=== PATIENT | female | born 1990 | race American Indian/Alaskan Native ===

== ENCOUNTER 2018-09-07 12:35 | Emergency (ER) | payer SELFPAY ==
[2018-09-07 12:47] VITALS: BP 101/64
[2018-09-07 14:57] LABS: HCG Qualitative,Urine Negative (Negative)
[2018-09-07 15:01] LABS: Bacteria,Urine 3+ /HPF (Negative); Bilirubin,Urine NEG (Negative); Blood,Urine SM (Negative); Color,Urine Yellow (Yellow)
[2018-09-07 15:05] LABS: WBC,Urine > 182.0 /HPF (0.0-6.0)
[2018-09-07] MEDS ORDERED: ROCEPHIN IM ONE (15:10)
[2018-09-07] MEDS ORDERED: XYLOCAINE 1% MPF 5 mL INFILTRATI ONE (15:10)
[2018-09-07] MEDS ORDERED: MOTRIN PO ONE (15:11)
--- NOTE | 2018-09-07 15:13 | Emergency Department Report ---
ED Dysuria HPI - HPI Chief Complaint: Back Pain/Injury Stated Complaint: LOWER BACK PAIN Time Seen by Provider: 09/07/18 13:58 Duration: 3 Days Location of Discomfort: Suprapubic Severity: Moderate Symptoms: Dysuria: Yes, Frequency: No, Suprapubic Pain: No, Flank Pain: Yes, Fever: No, Hematuria: No, Abdominal Pain: No, Previous UTI's: Yes ED Review of Systems ROS: Stated complaint: LOWER BACK PAIN Other details as noted in HPI Comment: All other systems reviewed and negative Constitutional: no symptoms reported. denies: chills, fever Eyes: denies: eye pain ENT: denies: ear pain Respiratory: denies: cough Cardiovascular: denies: chest pain Endocrine: denies: flushing Gastrointestinal: denies: abdominal pain, nausea, vomiting, diarrhea, constipation, hematemesis, melena Genitourinary: denies: urgency, dysuria, frequency, hematuria, discharge Musculoskeletal: back pain Skin: denies: rash, lesions Neurological: denies: headache, weakness Psychiatric: denies: anxiety, depression Hematological/Lymphatic: denies: easy bleeding ED Past Medical Hx - Past Medical History Previous Medical History?: No - Surgical History Past Surgical History?: No - Family History Family history: no significant - Social History Smoking Status: Current Every Day Smoker Substance Use Type: None - Medications Home Medications: Home Medications Medication Instructions Recorded Confirmed Last Taken Type Ciprofloxacin HCl [Cipro] 500 mg PO BID #10 tablet 09/07/18 Unknown Rx Dysuria Exam - Exam General: Vital signs noted. No distress. Alert and acting appropriately. Exam: Yes Moist Mucous Membranes, Yes CVA Tenderness (R), No Abdominal Tenderness, No Rigidity or Guarding Labs: Lab Results 09/07/18 Range/Units 14:06 Urine Color Yellow (Yellow) Urine Turbidity Cloudy (Clear) Urine pH 5.0 (5.0-7.0) Ur Specific [place] 1.015 (1.003-1.030) Urine Protein 100 mg/dl (Negative) mg/dL Urine Glucose (UA) Neg (Negative) mg/dL Urine Ketones Neg (Negative) mg/dL Urine Blood Sm (Negative) Urine Nitrite Pos (Negative) Ur Reducing Substances Not Reportable Urine Bilirubin Neg (Negative) Urine Ictotest Not Reportable Urine Urobilinogen 4.0 (<2.0) mg/dL Ur Leukocyte Esterase Lg (Negative) Urine WBC (Auto) > 182.0 H (0.0-6.0) /HPF Urine RBC (Auto) 9.0 (0.0-6.0) /HPF U Epithel Cells (Auto) 10.0 (0-13.0) /HPF Urine Bacteria (Auto) 3+ (Negative) /HPF Urine HCG, Qual Negative (Negative) ED Course Vital Signs 09/07/18 12:46 Temperature 98.5 F Pulse Rate 99 H Respiratory 20 Rate Blood Pressure 101/64 O2 Sat by Pulse 100 Oximetry ED Medical Decision Making - Medical Decision Making NO TRAUMA CO FLANK PAIN; DENIES DYSURIA; HX UTI NO VAG DC; NOT CO STI - Differential Diagnosis UTI V PYLO V BACK INJURY Critical care attestation.: If time is entered above; I have spent that time in minutes in the direct care of this critically ill patient, excluding procedure time. ED Disposition Clinical Impression: UTI (urinary tract infection) Disposition: TO HOME OR SELFCARE Is pt being admited?: No Does the pt Need Aspirin: No Condition: Stable Instructions: Urinary Tract Infection in Women (ED) Additional Instructions: TAKE MED UNTIL GONE FOLLOW UP WITH PCP GIVEN BELOW HYDRATE WELL MOTRIN OR TYLENOL FOR PAIN OR FEVER DO NOT STOP MED EARLY EAT YOGURT DAILY TO PREVENT YEAST INFECTION ACTIVITY TOLERATED Prescriptions: Ciprofloxacin HCl [Cipro] 500 mg PO BID #10 tablet Referrals: PRIMARY CAREMD [Primary Care Provider] - 3-5 Days RYANNE SANDY MD [Staff Physician] - 3-5 Days Time of Disposition: 15:11
== END 2018-09-07 15:38 | disposition home or self-care (01) ==
LOC: ED 12:35
DX: N39.0 Urinary tract infection, site not specified (principal); F17.200 Nicotine dependence, unspecified, uncomplicated
CPT/HCPCS: 81001; 81025; 96372; 99283; J0696

== ENCOUNTER 2019-10-02 09:42 | Emergency (ER) | payer SELFPAY ==
[2019-10-02] MEDS ORDERED: SODIUM CHLORIDE 0.9% 1000 ML 1,000 ML IV ONE (10:58)
--- NOTE | 2019-10-02 11:22 | Emergency Department Report ---
ED Syncope HPI - General Chief Complaint: Syncope Stated Complaint: PASSED OUT/HIT HEAD Time Seen by Provider: 10/02/19 10:46 Source: patient Exam Limitations: no limitations - History of Present Illness Initial Comments: 28-year-old female with no medical history presents to ED following syncopal episode at home. Patient reports she has been "emotional" since yesterday after finding out that her grandfather . Patient states this morning, she felt lightheaded prior to passing out. Patient denies any headache, chest pain, shortness of breath prior to the episode. Patient currently reporting headache and chest wall pain due to the fall. Patient denies any recent fever, nausea, vomiting, diarrhea, leg pain or swelling. Timing/Prior Episodes: single episode today Precipitating Factors: Positive: lightheadedness Context: standing Loss of Consciousness: brief (seconds) Current Symptoms: chest pain (chest wall pain), headache - Related Data Allergies/Adverse Reactions: Allergies No Known Allergies Allergy (Verified 09/07/18 12:46) Home Medications: Ambulatory Orders Ciprofloxacin HCl [Cipro] 500 mg PO BID #10 tablet 09/07/18 Naproxen [Naprosyn] 500 mg PO BID #20 tablet 10/02/19 ED Review of Systems ROS: Stated complaint: PASSED OUT/HIT HEAD Other details as noted in HPI Comment: All other systems reviewed and negative Constitutional: denies: chills, fever Respiratory: denies: shortness of breath Cardiovascular: denies: palpitations Gastrointestinal: denies: abdominal pain, vomiting, diarrhea Musculoskeletal: other (reports chest wall pain) Neurological: headache ED Past Medical Hx - Past Medical History Previous Medical History?: No - Surgical History Past Surgical History?: No - Social History Smoking Status: Never Smoker Substance Use Type: None - Medications Home Medications: Home Medications Medication Instructions Recorded Confirmed Last Taken Type Ciprofloxacin HCl [Cipro] 500 mg PO BID #10 tablet 09/07/18 Unknown Rx Naproxen [Naprosyn] 500 mg PO BID #20 tablet 10/02/19 Unknown Rx ED Physical Exam - General Limitations: No Limitations General appearance: alert, in no apparent distress - Head Head exam: Present: atraumatic, normocephalic, normal inspection - Eye Eye exam: Present: normal appearance, PERRL, EOMI - ENT ENT exam: Present: mucous membranes moist - Neck Neck exam: Present: normal inspection. Absent: tenderness - Respiratory Respiratory exam: Present: normal lung sounds bilaterally, chest wall tenderness (left lower chest wall tenderness). Absent: respiratory distress - Cardiovascular Cardiovascular Exam: Present: regular rate, normal rhythm - GI/Abdominal GI/Abdominal exam: Present: soft. Absent: distended, tenderness - Extremities Exam Extremities exam: Present: normal inspection. Absent: pedal edema, calf tenderness - Neurological Exam Neurological exam: Present: alert, oriented X3, CN II-XII intact. Absent: motor sensory deficit - Psychiatric Psychiatric exam: Present: normal affect, normal mood - Skin Skin exam: Present: warm, dry, intact, normal color ED Course Vital Signs 10/02/19 10/02/19 10:09 12:12 Temperature 98.1 F Pulse Rate 97 H Pulse Rate [ 56 L Lying] Pulse Rate [ 57 L Sitting] Pulse Rate [ 64 Standing] Respiratory 16 Rate Blood Pressure 143/74 [Left] Blood Pressure 108/64 [Lying] Blood Pressure 107/73 [Sitting] Blood Pressure 121/83 [Standing] O2 Sat by Pulse 98 Oximetry ED Medical Decision Making - Lab Data Result diagrams: 10/02/19 11:30 10/02/19 11:30 - EKG Data -: EKG Interpreted by Sd EKG shows normal: sinus rhythm, axis, intervals, QRS complexes, ST-T waves Rate: normal - EKG Data Interpretation: no acute changes - Radiology Data Radiology results: report reviewed, image reviewed - Medical Decision Making Syncopal episode earlier. EKG normal. CT head normal. D-dimer mildly elevated, so CTA obtained. CTA chest was unremarkable. Patient received IV fluids. No neuro deficits on exam. Remainder labs unremarkable. Patient advised to follow-up as an outpatient. Return precautions given. - Differential Diagnosis arrythmia, , dehydration, PE Critical care attestation.: If time is entered above; I have spent that time in minutes in the direct care of this critically ill patient, excluding procedure time. ED Disposition Clinical Impression: Syncope Disposition: DC-01 TO HOME OR SELFCARE Is pt being admited?: No Condition: Stable Instructions: Syncope (ED) Prescriptions: Naproxen [Naprosyn] 500 mg PO BID #20 tablet Referrals: PRIMARY CARE, [Primary Care Provider] - 3-5 Days [facility] [Provider Group] - 3-5 Days [facility] [Outside] - 3-5 Days Time of Disposition: 14:08
[2019-10-02 11:40] LABS: Bilirubin,Urine NEG (Negative); Blood,Urine NEG (Negative); Color,Urine Yellow (Yellow); Mucus,Urine FEW /HPF; Urobilinogen,Urine < 2.0 mg/dL (<2.0)
[2019-10-02 11:54] LABS: Basophils % (Auto) 0.3 % (0.0-1.8); Eosinophils % (Auto) 0.1 % (0.0-4.3); Hematocrit 41.5 % (30.3-42.9); Lymphocytes # (Auto) 1.1 K/mm3 (1.2-5.4); Lymphocytes % (Auto) 8.5 % (13.4-35.0); Mean Corpuscular HGB Conc 34 % (30-34); Mean Corpuscular Volume 89 fl (79-97); Monocytes # (Auto) 0.5 K/mm3 (0.0-0.8); Monocytes % (Auto) 3.7 % (0.0-7.3); Platelet Count 267 K/mm3 (140-440); Red Blood Count 4.68 M/mm3 (3.65-5.03); Red Cell Distribution Width 13.4 % (13.2-15.2)
[2019-10-02 12:09] LABS: BUN/Creatinine Ratio 21; Blood Urea Nitrogen 15 mg/dL (7-17); Calcium 9.4 mg/dL (8.4-10.2); Hemolysis Index 32
[2019-10-02 12:15] VITALS: BP 108/64
--- NOTE | 2019-10-02 12:50 | XRay Report ---
CHEST 2 VIEWS INDICATION: pain, injury. COMPARISON: None FINDINGS: Support devices: None. Heart: Within normal limits. Lungs/pleura: No acute air space or interstitial disease. No pneumothorax. Additional findings: None. IMPRESSION: 1. No acute findings. Signer Name: Robbie Bird MD Signed: 10/02/2019 12:46 PM Workstation Name: [id number]
--- NOTE | 2019-10-02 13:00 | Cat Scan Report ---
CT head/brain wo con INDICATION / CLINICAL INFORMATION: 28 years Female; injury, pain. TECHNIQUE: Routine CT head without contrast. All CT scans at this location are performed using CT dos e reduction for ALARA by means of automated exposure control. COMPARISON: None. FINDINGS: BRAIN / INTRACRANIAL CONTENTS: No intracranial sequela from the trauma. No scalp hematoma. No air-flu id level visualized portions of the paranasal sinuses. No acute hemorrhage, mass effect, midline shift, hydrocephalus, or acute, large territorial infarct. No chronic infarct or focal atrophy. Normal brain volume and ventricular/sulcal size for age. No sign ificant white matter abnormality. CRANIOCERVICAL JUNCTION: No significant abnormality. ORBITS: No significant abnormality of visualized orbits. SINUSES / MASTOIDS: No significant abnormality of the visualized paranasal sinuses or mastoid air phillip ls. ADDITIONAL FINDINGS: None. IMPRESSION: Normal nonenhanced CT scan of the brain. Signer Name: Fatmata Obrien MD Signed: 10/02/2019 12:55 PM Workstation Name: [id number]
--- NOTE | 2019-10-02 14:03 | Cat Scan Report ---
CTA CHEST WITH IV CONTRAST, 10/02/2019 INDICATION: Chest pain. Shortness of breath TECHNIQUE: Axial CT images were obtained through the chest after injection of IV contrast. Coronal oblique 2-D reconstruction images were produced. 3 plane MIP reconstruction images were produced at an [employer] workstation. All CTs at this facility utilize dose reduction techniques including automated expos ure control, iterative reconstruction and weight based dosing when appropriate to reduce patient radi ation dose to as low as reasonable achievable. COMPARISON: Chest radiograph, 10/02/2019 FINDINGS: Evaluation of the pulmonary arteries demonstrates no evidence of filling defect within the central or segmental pulmonary arteries to suggest pulmonary embolism. The heart is normal in size. Evaluation of the lung parenchyma demonstrates no focal airspace disease or pleural effusion. Evaluation of the upper abdomen shows no evidence of acute abnormality. Evaluation of bony structures demonstrates no evidence of acute bony abnormality. IMPRESSION: 1. No evidence of pulmonary embolism or acute parenchymal process. Signer Name: Ana Muñoz MD Signed: 10/02/2019 1:58 PM Workstation Name: [id number]
== END 2019-10-02 14:27 | disposition home or self-care (01) ==
LOC: ED 09:42
DX: R55 Syncope and collapse (principal); Z79.899 Other long term (current) drug therapy
CPT/HCPCS: 36415; 70450; 71046; 71275; 80048; 81001; 84484; 84703; 85025; 85379; 93005; 93010; 99284; J7030; Q9967